=== PATIENT | male | born 1945 | race Caucasian/White ===

== ENCOUNTER 2021-02-03 09:54 | Inpatient (IN) | payer OTHER ==
[~2021-02-03] VITALS: Ht 177.8 cm; Wt 84.5 kg
[2021-02-03 10:01] VITALS: BP 183/124
[2021-02-03] MEDS ORDERED: LIPITOR40 MG PO (10:10)
[2021-02-03] MEDS ORDERED: LYRICA200 MG PO (10:10)
[2021-02-03] MEDS ORDERED: PERCOCET 5-3251 EACH (10:10)
[2021-02-03] MEDS ORDERED: OMEPRAZOLE 20 M20 M1 PO (10:10)
[2021-02-03] MEDS ORDERED: COZAAR 50 MG TA50 MG PO (10:11)
[2021-02-03] MEDS ORDERED: DRIZALMA SPRINK60 MG PO (10:11)
[2021-02-03] MEDS ORDERED: COREG25 M1 PO (10:11)
[2021-02-03] MEDS ORDERED: VITAMINC500 PO (10:11)
[2021-02-03] MEDS ORDERED: VITAMIN D3125 MCG PO (10:12)
[2021-02-03] MEDS ORDERED: FISH OIL/OMEGA-3 (10:13)
[2021-02-03] MEDS ORDERED: SENNA8.8 MG/5 M PO (10:13)
[2021-02-03] MEDS ORDERED: DULCOLAX STOOL100 M1 PO (10:13)
[2021-02-03 10:37] LABS: ABSOLUTE EOSINOPHILS 0.3 thou/uL (0.0-0.7); ABSOLUTE MONOCYTES 0.5 thou/uL (0.0-1.2); BASOPHILS 0.4 %; EOSINOPHILS 3.7 %; HEMOGLOBIN 10.9 gm/dL (14.0-18.0); LYMPHOCYTES 15.3 %; MCH 28.3 pg (26.0-34.0); MCV 85.6 fL (80.0-100.0); MPV 8.2 fl. (7.2-11.1); NUCLEATED RBCS 0 /100WBC; PLATELET COUNT* 226 thou/uL (150-400); POLYS 72.6 %; RBC 3.86 mil/uL (4.50-6.00); RDW-CV 15.6 % (10.5-14.5); WBC 6.8 thou/uL (4.0-11.0)
[2021-02-03 10:49] LABS: CALCIUM 8.3 mg/dL (8.5-10.1); CREATININE 0.9 mg/dL (0.6-1.3); POTASSIUM 3.4 mmol/L (3.5-5.1)
[2021-02-03 10:53] LABS: ALBUMIN 2.5 g/dL (3.4-5.0); TOTAL BILIRUBIN 0.5 mg/dL (<0.1-1.0); TOTAL PROTEIN 6.2 g/dL (6.4-8.2)
[2021-02-03 12:15] LABS: URINE BILIRUBIN NEGATIVE (Negative); URINE BLOOD NEGATIVE (Negative); URINE CLARITY CLEAR; URINE COLOR YELLOW; URINE GLUCOSE-RANDOM NEGATIVE (Negative); URINE KETONES NEGATIVE (Negative); URINE LEUKOCYTES-REFLEX NEGATIVE (Negative); URINE NITRITE-REFLEX NEGATIVE (Negative); URINE PROTEIN NEGATIVE (Negative); URINE SPECIFIC GRAVITY <= 1.005 (1.005-1.030); URINE UROBILINOGEN 0.2 E.U./dl (0.2-1.0)
[2021-02-03 12:16] LABS: NT-PRO BRAIN NAT PEPTIDE 2583 pg/mL (<300)
--- NOTE | 2021-02-03 15:41 | EKG ---
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
[2021-02-03 18:33] VITALS: BP 141/73
[2021-02-03 19:07] VITALS: BP 155/80
[2021-02-03 20:00] VITALS: BP 196/90
[2021-02-03 23:50] VITALS: BP 163/67
[2021-02-04 05:16] LABS: HEMOGLOBIN 10.4 gm/dL (14.0-18.0); MCH 28.2 pg (26.0-34.0); MCHC 33.6 g/dL (28.0-37.0); MCV 84.1 fL (80.0-100.0); MPV 8.9 fl. (7.2-11.1); RBC 3.68 mil/uL (4.50-6.00); RDW-CV 15.6 % (10.5-14.5); WBC 8.3 thou/uL (4.0-11.0)
[2021-02-04 05:23] VITALS: BP 159/74
[2021-02-04 05:26] LABS: CALCIUM 8.5 mg/dL (8.5-10.1)
[2021-02-04 05:27] LABS: POTASSIUM 2.8 mmol/L (3.5-5.1)
[2021-02-04 08:21] VITALS: BP 148/67
[2021-02-04 11:32] VITALS: BP 148/68
[2021-02-04 12:08] LABS: MAGNESIUM 1.5 mg/dL (1.8-2.4); PHOSPHORUS* 3.4 mg/dL (2.5-4.9)
--- NOTE | 2021-02-04 13:43 | 2DMMODE ---
[place] [address] 2 D/M-MODE ECHOCARDIOGRAM Name: KARANESTRELLAROBY Room: [facility] ADM IN [facility]#: [id number] Admission: 02/03/21 Attend Phys: Nelia Huertas MD Discharge: Date of : 45 Date of Service: 02/04/21 1343 Report #: [id number] THIS REPORT FOR: cc: Ronal Bradley Gregory DO Liston, Michael J. MD [facility] ~ APPROVED REPORT Study performed: 02/04/2021 10:55:21 EXAM: Comprehensive 2D, Doppler, and color-flow Echocardiogram Patient Location: In-Patient Room #: [facility] Status: routine BSA: 1.92 HR: 98 bpm BP: 148/67 mmHg Rhythm: NSR Other Information Study Quality: Good Indications Murmur 2D Dimensions IVSd: 10.10 (7-11mm) LVOT Diam: 19.48 (18-24mm) LVDd: 34.15 mm PWd: 10.91 (7-11mm) Ascending Ao: 35.89 (22-36mm) LVDs: 23.76 (25-40mm) Aortic Root: 34.83 mm Volumes Left Atrial Volume (Systole) LA ESV Index: 35.40 mL/m2 Aortic Valve AoV Peak Tayo.: 2.76 m/s AO Peak Gr.: 30.45 mmHg LVOT Max P.66 mmHg AO Mean Gr.: 16.94 mmHg LVOT Mean P.48 mmHg LVOT Max V: 1.29 m/s AO V2 VTI: 62.31 cm LVOT Mean V: 0.86 m/s CATHY (VTI): 1.62 cm2 LVOT V1 VTI: 33.96 [place] [address] 2 D/M-MODE ECHOCARDIOGRAM Name: ROBY OWENS Room: [address] IN ..#: [id number] Admission: 02/03/21 Attend Phys: Nelia Huertas MD Discharge: Date of : 45 Date of Service: 02/04/21 1343 Report #: [id number] Mitral Valve E/A Ratio: 1.06 MV Decel. Time: 294.22 ms MV E Max Tayo.: 0.91 m/s MV PHT: 85.32 ms MVA (PHT): 2.58 cm2 TDI E/Lateral E': 10.11 E/Medial E': 10.11 Medial E' Tayo.: 0.09 m/s Lateral E' Tayo.: 0.09 m/s Pulmonary Valve PV Peak Tayo.: 1.23 m/s PV Peak Gr.: 6.10 mmHg Tricuspid Valve RAP Estimate: 5.00 mmHg TR Peak Gr.: 30.12 mmHg RVSP: 35.00 mmHg PA Pressure: 35.00 mmHg Left Ventricle The left ventricle is normal size. There is normal LV segmental wall motion. Mild concentric left ventricular hypertrophy. Left ventricular systolic function is normal. LVEF is 60-65%. Transmitral Doppler flow pattern suggests impaired LV relaxation. Right Ventricle Right ventricle is mildly dilated. The right ventricular systolic function is normal. Atria Left atrium is borderline dilated. Right atrium is mildly dilated. Aortic Valve Mild aortic valve sclerosis. Trace aortic regurgitation. Moderate aortic stenosis. Mitral Valve The mitral valve is normal in structure. Trace mitral regurgitation. No evidence of mitral valve stenosis. Tricuspid Valve The tricuspid valve is normal in structure. Mild tricuspid regurgitation. Mild pulmonary hypertension. The RVSP is 35-40 [place] [address] 2 D/M-MODE ECHOCARDIOGRAM Name: ROBY OWENS Room: [address] IN [facility]#: [id number] Admission: 02/03/21 Attend Phys: Nelia Huertas MD Discharge: Date of : 45 Date of Service: 02/04/21 1343 Report #: [id number] Pulmonic Valve The pulmonary valve is normal in structure. There is no pulmonic valvular regurgitation. Great Vessels The aortic root is normal in size. IVC is normal in size and collapses >50% with inspiration. Pericardium There is no pericardial effusion. <Conclusion> The left ventricle is normal size. Mild concentric left ventricular hypertrophy. Left ventricular systolic function is normal. LVEF is 60-65%. Transmitral Doppler flow pattern suggests impaired LV relaxation. There is normal LV segmental wall motion. Right ventricle is mildly dilated. Right atrium is mildly dilated. Mild aortic valve sclerosis. Trace aortic regurgitation. Moderate aortic stenosis. Trace mitral regurgitation. Mild tricuspid regurgitation. Mild pulmonary hypertension. The RVSP is 35-40 mmHg. IVC is normal in size and collapses >50% with inspiration. <ELECTRONICALLY SIGNED> By: Quintin Khan MD, FACC 02/04/21 1343 1343 1343 Quintin Khan MD, FACC /INF
[2021-02-04 16:41] VITALS: BP 148/68
--- NOTE | 2021-02-04 17:24 | CON ---
[address] [address] CONSULTATION Name: ROBY OWENS Room: [place] [address] ADM IN M.R.#: [id number] Admission: 02/03/21 Attend Phys: Nelia Huertas MD Discharge: Date of : 45 Report #: [id number] THIS REPORT FOR: cc: Ronal Bradley Gregory DO Blick, David R. MD [facility] ~ DOC #: [id number] cc: DO Reji Paiz MD [facility] DATE OF CONSULTATION: 02/03/2021 CARDIOLOGY CONSULTATION HISTORY OF PRESENT ILLNESS: The patient is a 75-year-old white male who I was asked to see in the emergency room today after he is noted to have an elevated troponin. The patient denies a history of heart disease. He has been told in the past he has a heart murmur. However, he has never seen a heart doctor. He is not very active because of chronic back pain. He recently moved back from [place] to live in [place]. He notes about a week ago he ate pizza. Ever since then, he has not felt well. He has had black stools and diarrhea. He ran a fever. He notes some aching in his chest. He has vomited, no blood in his vomit. He has had some epigastric discomfort. He has had no appetite. He notes his heart was racing. He has felt dizzy, but no syncope. He finally came to the emergency room and was admitted for further evaluation and treatment. PAST MEDICAL HISTORY: Impressive. PAST SURGICAL HISTORY: Includes hernia repair, knee surgery, hemorrhoidectomy, appendectomy, elbow surgery, sinus surgery, spinal implant, cervical spine fusion, skin cancer removal, hammertoe surgery, rotator cuff surgery, cataract extraction. He denied a history of diabetes. He does have hypertension, hyperlipidemia. CURRENT MEDICATIONS: Oxycodone, Lipitor, omeprazole, Cymbalta, losartan, carvedilol. ALLERGIES: HE HAS ALLERGY TO CODEINE. FAMILY HISTORY: Negative for heart disease. SOCIAL HISTORY: He is . His has multiple sclerosis. She has been at a [facility] [place] [address] CONSULTATION Name: ROBY OWENS Room: [address] IN [facility]#: [id number] Admission: 02/03/21 Attend Phys: Nelia Huertas MD Discharge: Date of : 45 Report #: [id number] REVIEW OF SYSTEMS: No history of stroke, asthma, liver disease, kidney disease, psychiatric illness. PHYSICAL EXAMINATION: GENERAL: Revealed elderly male, lying in bed, appeared in no acute distress. VITAL SIGNS: He had a blood pressure of 180/90, pulse is 60. He is afebrile. HEENT: He was anicteric. Conjunctivae are pink. Mucous membranes moist. NECK: Veins not distended. No carotid bruits. CHEST: Clear to auscultation. HEART: Regular rate and rhythm. Grade IV systolic ejection murmur at left sternal border. ABDOMEN: Mildly tender, soft. EXTREMITIES: Had no edema. Dorsalis pedis pulses 1+ bilaterally. SKIN: Cool and dry. NEUROLOGIC: Nonfocal. LABORATORY DATA: His ECG in the emergency room showed sinus bradycardia, no significant ST or T-wave change. His workup in the emergency room, he had a CT scan of the chest using a PE protocol that showed pulmonary infiltrates suggestive of pneumonitis. He had a CT scan of the abdomen in the emergency room that showed pulmonary infiltrate, small effusion. His lab work, creatinine 0.9, troponin 0.08. BNP 2583, hemoglobin 10.9. His COVID antigen stat test was negative. Urinalysis was negative for protein. IMPRESSION AND RECOMMENDATION: 1. Minimal nonsignificant elevation of troponin. Recommend no further cardiac evaluation. 2. Aortic stenosis. Recommend echocardiogram. 3. Dark stools. Recommend rule out gastrointestinal bleeding. 4. Epigastric discomfort and nausea. No evidence of acute abdomen. 5. Degenerative joint disease. The patient has multiple orthopedic surgeries. 6. Pneumonia noted on CT scan of the chest. 7. Hemoglobin. Possible gastrointestinal bleeding. Reji Alvarado MD [facility] B/OMID <ELECTRONICALLY SIGNED> By: Reji Alvarado MD, [facility] 02/04/21 1724 1557 Dkofi Alvarado MD, [facility] /nt
[2021-02-04 20:00] VITALS: BP 125/65
[2021-02-05] VITALS: BP 141/64
[2021-02-05 04:00] VITALS: BP 165/80
[2021-02-05 04:14] LABS: HEMATOCRIT 31.3 % (42.0-52.0); HEMOGLOBIN 10.5 gm/dL (14.0-18.0); MCH 28.1 pg (26.0-34.0); MCHC 33.4 g/dL (28.0-37.0); MCV 84.1 fL (80.0-100.0); MPV 8.7 fl. (7.2-11.1); RBC 3.72 mil/uL (4.50-6.00); RDW-CV 15.9 % (10.5-14.5)
[2021-02-05 04:24] LABS: CALCIUM 8.4 mg/dL (8.5-10.1); POTASSIUM 4.1 mmol/L (3.5-5.1)
[2021-02-05 08:40] VITALS: BP 188/86
[2021-02-05 12:00] VITALS: BP 162/73
[2021-02-05 16:00] VITALS: BP 138/64
[2021-02-05 20:00] VITALS: BP 172/76
[2021-02-06 00:08] VITALS: BP 160/68
[2021-02-06 05:21] VITALS: BP 182/80
[2021-02-06 12:31] VITALS: BP 174/83
[2021-02-06 20:00] VITALS: BP 206/92
[2021-02-07] VITALS: BP 125/55; BP 159/70
[2021-02-07 04:19] LABS: HEMATOCRIT 33.8 % (42.0-52.0); HEMOGLOBIN 11.3 gm/dL (14.0-18.0); MCH 28.2 pg (26.0-34.0); MCHC 33.3 g/dL (28.0-37.0); MCV 84.7 fL (80.0-100.0); MPV 8.6 fl. (7.2-11.1); RBC 3.99 mil/uL (4.50-6.00); RDW-CV 15.9 % (10.5-14.5)
[2021-02-07 04:36] LABS: CALCIUM 8.7 mg/dL (8.5-10.1); CREATININE 0.8 mg/dL (0.6-1.3); POTASSIUM 3.8 mmol/L (3.5-5.1)
[2021-02-07 08:00] VITALS: BP 190/85
[2021-02-07 18:10] VITALS: BP 165/90
[2021-02-07 20:00] VITALS: BP 163/94
[2021-02-08 00:28] VITALS: BP 182/82
[2021-02-08 03:47] LABS: CALCIUM 9.1 mg/dL (8.5-10.1); CREATININE 0.9 mg/dL (0.6-1.3); HEMATOCRIT 35.8 % (42.0-52.0); HEMOGLOBIN 11.7 gm/dL (14.0-18.0); MCH 27.8 pg (26.0-34.0); MCHC 32.7 g/dL (28.0-37.0); MCV 85.1 fL (80.0-100.0); MPV 9.3 fl. (7.2-11.1); POTASSIUM 4.2 mmol/L (3.5-5.1); RBC 4.21 mil/uL (4.50-6.00); RDW-CV 16.1 % (10.5-14.5); WBC 7.8 thou/uL (4.0-11.0)
[2021-02-08 07:30] VITALS: BP 178/84
[2021-02-08 16:00] VITALS: BP 147/78
[2021-02-08 20:00] VITALS: BP 161/89
[2021-02-08] MEDS ORDERED: TAMSULOSIN HCL0.4 MG PO (21:34)
[2021-02-09 00:44] VITALS: BP 162/72
[2021-02-09 10:00] VITALS: BP 184/102
[2021-02-09 14:21] VITALS: BP 166/109
[2021-02-09 20:00] VITALS: BP 148/76
[2021-02-09 23:42] VITALS: BP 150/66
[2021-02-10 04:37] LABS: ALBUMIN 2.6 g/dL (3.4-5.0); CALCIUM 8.8 mg/dL (8.5-10.1); MAGNESIUM 1.8 mg/dL (1.8-2.4); POTASSIUM 4.4 mmol/L (3.5-5.1); TOTAL BILIRUBIN 0.4 mg/dL (<0.1-1.0); TOTAL PROTEIN 6.3 g/dL (6.4-8.2)
[2021-02-10 04:38] LABS: HEMATOCRIT 35.2 % (42.0-52.0); HEMOGLOBIN 11.5 gm/dL (14.0-18.0); MCHC 32.6 g/dL (28.0-37.0); MCV 85.9 fL (80.0-100.0); MPV 8.7 fl. (7.2-11.1); RBC 4.1 mil/uL (4.50-6.00); RDW-CV 16.3 % (10.5-14.5); WBC 7.5 thou/uL (4.0-11.0)
[2021-02-10 08:00] VITALS: BP 150/93
[2021-02-10 16:00] VITALS: BP 134/70
[2021-02-11 00:38] VITALS: BP 122/52
[2021-02-11 04:43] VITALS: BP 179/75
[2021-02-11 04:48] LABS: HEMATOCRIT 32.4 % (42.0-52.0); MCV 85.1 fL (80.0-100.0); MPV 8.8 fl. (7.2-11.1); RBC 3.81 mil/uL (4.50-6.00); RDW-CV 15.5 % (10.5-14.5); WBC 7.8 thou/uL (4.0-11.0)
[2021-02-11 04:55] LABS: ALBUMIN 2.5 g/dL (3.4-5.0); CALCIUM 8.6 mg/dL (8.5-10.1); CREATININE 1.1 mg/dL (0.6-1.3); MAGNESIUM 1.8 mg/dL (1.8-2.4); TOTAL BILIRUBIN 0.3 mg/dL (<0.1-1.0); TOTAL PROTEIN 6.1 g/dL (6.4-8.2)
[2021-02-11 07:45] VITALS: BP 157/103
[2021-02-11 13:41] LABS: APTT 26.7 Seconds (25.0-31.3); INR 1.1; PROTIME 11.8 Seconds (9.20-11.50)
[2021-02-11 16:57] VITALS: BP 115/55
[2021-02-11 17:39] LABS: BE -0.5 mmol/L (-2 to +3); PCO2 41.9 mmHg (35.0-45.0); PO2 93.4 mmHg (75.0-100.0); pH 7.386 (7.340-7.450)
[2021-02-11 20:00] VITALS: BP 133/74
[2021-02-12 00:10] VITALS: BP 121/54
[2021-02-12 04:48] LABS: ABSOLUTE LYMPHOCYTES 0.9 thou/uL (0.8-5.3); ABSOLUTE MONOCYTES 0.1 thou/uL (0.0-1.2); ABSOLUTE NEUTROPHILS 5.7 thou/uL (1.6-8.1); BASOPHILS 0.4 %; HEMATOCRIT 34.5 % (42.0-52.0); HEMOGLOBIN 11.5 gm/dL (14.0-18.0); LYMPHOCYTES 13.4 %; MCH 28.7 pg (26.0-34.0); MCHC 33.3 g/dL (28.0-37.0); MCV 86.2 fL (80.0-100.0); MPV 8.6 fl. (7.2-11.1); NUCLEATED RBCS 0 /100WBC; PLATELET COUNT* 256 thou/uL (150-400); POLYS 84.2 %; RDW-CV 15.6 % (10.5-14.5); WBC 6.7 thou/uL (4.0-11.0)
[2021-02-12 04:51] VITALS: BP 119/42
[2021-02-12 04:52] LABS: ALBUMIN 2.7 g/dL (3.4-5.0); CALCIUM 9.3 mg/dL (8.5-10.1); CREATININE 1.1 mg/dL (0.6-1.3); POTASSIUM 5.2 mmol/L (3.5-5.1); TOTAL BILIRUBIN 0.3 mg/dL (<0.1-1.0); TOTAL PROTEIN 6.7 g/dL (6.4-8.2)
[2021-02-12 07:30] VITALS: BP 152/78
[2021-02-12 10:08] LABS: ANTI-DNA SCREEN <1 IU/mL (0-9); ANTI-RNP <0.2 AI (0.0-0.9); ANTI-SSA <0.2 AI (0.0-0.9); ANTIJO-I AB <0.2 AI (0.0-0.9)
[2021-02-12 14:03] VITALS: BP 135/67
[2021-02-12 17:22] VITALS: BP 131/65
[2021-02-12 23:06] LABS: MYCOPLASMA PNEUMONIA IgM <770 U/mL (0-769)
[2021-02-13 00:55] VITALS: BP 143/64
[2021-02-13 02:06] LABS: MYCOPLASMA PNEUMONIA IgG 1125 U/mL (0-99)
[2021-02-13 04:39] VITALS: BP 145/57
[2021-02-13 07:30] VITALS: BP 166/76
[2021-02-13 16:51] VITALS: BP 117/52
[2021-02-13 20:00] VITALS: BP 141/61
[2021-02-14 00:35] VITALS: BP 140/67
[2021-02-14 04:32] LABS: HEMATOCRIT 33.9 % (42.0-52.0); HEMOGLOBIN 11.4 gm/dL (14.0-18.0); MCH 29.3 pg (26.0-34.0); MCHC 33.6 g/dL (28.0-37.0); MCV 87.1 fL (80.0-100.0); MPV 8.7 fl. (7.2-11.1); RBC 3.89 mil/uL (4.50-6.00); WBC 8.7 thou/uL (4.0-11.0)
[2021-02-14 04:59] LABS: ALBUMIN 2.6 g/dL (3.4-5.0); CALCIUM 8.9 mg/dL (8.5-10.1); MAGNESIUM 1.8 mg/dL (1.8-2.4); POTASSIUM 4.2 mmol/L (3.5-5.1); TOTAL BILIRUBIN 0.2 mg/dL (<0.1-1.0); TOTAL PROTEIN 6.1 g/dL (6.4-8.2)
[2021-02-14 07:05] VITALS: BP 176/89
[2021-02-14 09:44] VITALS: BP 176/89
[2021-02-14 10:03] VITALS: BP 176/89
[2021-02-14 10:53] VITALS: BP 176/89
--- NOTE | 2021-02-14 15:07 | PATH ---
[address] [address] PATHOLOGY RPT PROCEDURE Name: ROBY OWENS Room: [address]#: [id number] Admission: 02/03/21 Date of : 45 Discharge: 02/14/21 Report #: [id number] Path Case #: [id number] Note [facility] Accession Number: [id number] TESTS RESULT FLAG UNITS REF RANGE LAB Clinician Provided Cytology Information No. of containers..01 Other (Miscellaneous) Source: BRONCH WASH [place] DIAGNOSIS: 02 BRONCH WASH [place] NEGATIVE FOR MALIGNANT CELLS. FEW BRONCHIAL EPITHELIAL CELLS, PULMONARY MACROPHAGES AND INFLAMMATORY CELLS ARE PRESENT. GMS (SILVER STAIN) NEGATIVE FOR PNEUMOCYSTIS AND FUNGAL ELEMENTS BUT LIMITED BY ESSENTIALLY ABSENT REMAINING CELLULARITY. Signed out by: 02 Fransico [place] MD, Pathologist NPI- [id number] Performed by: 01 Lolly Gray, Ironworker Foreman ([facility]) Gross description: 01 5ML, CLDY DEBRA MERINO, 1 TP 1SP /LCS 02/13/2021 1802 Local FLAG LEGEND: L-Low Normal,H-High Normal,LL-Alert Low,HH-Alert High <-Panic Low,>-Panic High,A-Abnormal,AA-Critical Abnormal Performed at: [address] [place] [address] Miguelangel Soni MD, [address] [place] [address] [place] [address] Fransico [place] MD, Specimen Comment: A courtesy copy of this report has been sent to [phone] Specimen Comment: [phone], Specimen Comment: Report sent to ,DR COOPER / DR DAS Performed at: [address], [place], [place] [id number] MD Miguelangel Soni MD Phone: [phone]
--- NOTE | 2021-02-17 11:06 | PATH ---
[address] [address] PATHOLOGY RPT PROCEDURE Name: ROBY OWENS Room: [address]#: [id number] Admission: 02/03/21 Date of : 45 Discharge: 02/14/21 Report #: [id number] Path Case #: [id number] Note [facility] Accession Number: [id number] TESTS RESULT FLAG UNITS REF RANGE LAB Clinician Provided Cytology Information No. of containers..01 Other (Miscellaneous) Source: BRONCH WASH RT LLL DIAGNOSIS: BRONCH WASH RT LL NEGATIVE FOR MALIGNANT CELLS. FEW BRONCHIAL EPITHELIAL CELLS, PULMONARY MACROPHAGES, SQUAMOUS CELLS AND INFLAMMATORY CELLS. SILVER STAIN (GMS) NEGATIVE FOR PNEUMOCYSTIS AND FUNGAL ORGANISMS BUT LIMITED BY ESSENTIALLY ABSENT REMAINING CELLULARITY. Signed out by: 02 Fransico [place] MD, Pathologist NPI- [id number] Performed by: 01 Lolly Gray, Warp Coiler ([facility]) Gross description: 01 12ML, CLDY DEBRA MERINO, 1 TP 1SP /LCS 02/14/2021 1723 Local FLAG LEGEND: L-Low Normal,H-High Normal,LL-Alert Low,HH-Alert High <-Panic Low,>-Panic High,A-Abnormal,AA-Critical Abnormal Performed at: [address] [place] [address] Miguelangel Soni MD, [address] [place] [address] [place] [address] Fransico [place] MD, Specimen Comment: A courtesy copy of this report has been sent to [phone] Specimen Comment: [phone], Specimen Comment: Report sent to ,DR COOPER / DR DAS Performed at: [address], [place], [place] [id number] MD Miguelangel Soni MD Phone: [phone]
--- NOTE | 2021-02-17 15:08 | CON ---
[address] [address] CONSULTATION Name: KARANESTRELLAROBY Agustin Room: [address] IN .R.#: [id number] Admission: 02/03/21 Attend Phys: Nelia Huertas MD Discharge: 02/14/21 Date of : 45 Report #: [id number] THIS REPORT FOR: cc: Ronal Bradley Gregory DO Pervez, Adeel MD ~ DOC #: [id number] Aristides Ornelas MD DATE OF CONSULTATION: 02/11/2021 CONSULT REQUESTED BY: Dr. Esquivel. INDICATION FOR CONSULTATION: Pulmonary infiltrates. HISTORY OF PRESENT ILLNESS: This is a 75-year-old gentleman. His past medical history is as mentioned below. This does not include a history of a cardiac or respiratory disease. The patient has had significant pain issues in the past and has previously taken significant amounts of narcotics, states that he is now off. The patient was now admitted about a week ago on 02/03/2021 presentation was with multiple nonspecific complaints. He subjectively felt febrile, also had had weakness, nausea and vomiting. He stated that he also was short of breath. The patient at that time did have a CT chest without contrast performed, which does show atypical looking bilateral infiltrates. He also had a CT of the abdomen and pelvis performed which was noncontributory. The patient was tested for COVID-19 and his COVID-19 antigen as well as a PCR came back negative. He did have an echocardiogram which showed moderate aortic stenosis and was seen by cardiology as well. The patient has remained on room air; however, there has only been limited improvement in his complaints. He says that his shortness of breath is better; however, he still feels weak and lethargic. The patient also has ongoing diarrhea. As he has been on broad spectrum antibiotics, he is currently being tested for C. diff. The patient's blood pressure remains on the higher side. The patient's chest x-rays show persistent infiltrates. He has received several doses of azithromycin and still remains on ceftriaxone. The patient currently does not have sputum production. He also does not have swelling of lower extremities or calf pain. However, he does have chronic venous insufficiency and does have some varicose veins. REVIEW OF SYSTEMS: The patient answers to the negative for 12 questions for review of systems except as described above. PAST MEDICAL HISTORY: Moderate aortic stenosis. He had a recent echo that shows a left ventricular ejection fraction of 60-65% with pulmonary artery systolic around 30-35. Hip and back pain in the past, has used significant amounts of narcotics. The patient states that he is now off narcotics. He has had a spinal implant, hernia surgery, knee surgery, hemorrhoid surgery, [place] [address] CONSULTATION Name: ROMANROBY Agustin Room: [address] IN .R.#: [id number] Admission: 02/03/21 Attend Phys: Nelia Huertas MD Discharge: 02/14/21 Date of : 45 Report #: [id number] appendectomy, skull fracture and spinal fusion, nose cancer requiring surgery, rotator cuff surgery, uncontrolled hypertension. SOCIAL HISTORY: There is no known history of smoking, ethanol abuse, or drug abuse. CURRENT MEDICATIONS: List in [employer], reviewed. HOME MEDICATION: List in [employer], reviewed. FAMILY HISTORY: There is no pertinent family history. ALLERGIES: THE PATIENT IS REPORTED TO HAVE ALLERGY OR INTOLERANCE TO CODEINE. PHYSICAL EXAMINATION: GENERAL: He is alert, awake and oriented, does not appear to be in any distress at this time. VITAL SIGNS: He has a pulse of 63. Blood pressure is elevated to 157/103. He is not on supplemental oxygen. He is saturating 96%. His respiratory rate is around 16 to 17. He is afebrile with a temperature of 36.2. His body mass index is 27. HEENT: Normocephalic and atraumatic. Pupils are equal and reactive. There is no throat erythema. He does not have thrush in his throat. NECK: Does not show raised JVP, asymmetry, mass or lymph nodes. CHEST: Symmetrical expansion on inspection and palpation on auscultation. Breath sounds are bilaterally equal, but mildly decreased. I do not hear any added sounds. HEART: Regular. There is a soft systolic murmur. ABDOMEN: Soft and nontender. LOWER EXTREMITIES: Do not show edema or calf tenderness. There are significant varicose veins noted, though there is evidence of chronic venous insufficiency. SKIN: Dry and intact. NEUROLOGIC: Moves all extremities bilaterally equally and spontaneously with no focal deficit identified. LABORATORY DATA: The patient had a CT chest on 02/03. I reviewed the same. The patient has subsequently had two chest x-rays. I reviewed the same as well. CT of the abdomen and pelvis report is reviewed. I do not have a previous x-ray or CT available for comparison. The patient's lab work, which was a normal WBC count and normal creatinine of 1.0 in [employer] reviewed. ASSESSMENT AND PLAN: 1. Pulmonary infiltrates. There are atypical looking infiltrates noted on his CT chest. The patient already has been treated with several doses of [facility] [address] [place] [address] CONSULTATION Name: ROBY OWENS Room: [address]#: [id number] Admission: 02/03/21 Attend Phys: Nelia Huertas MD Discharge: 02/14/21 Date of : 45 Report #: [id number] azithromycin and remains on ceftriaxone. Considering limited clinical improvement, I will go ahead and investigate further. I will go ahead and check serology for mycoplasma. We will also go ahead and obtain a connective tissue markers. I also ordered a D-dimer. Histoplasma appears to be unlikely, but for the sake of completion, I ordered histoplasma urine antigen as well. I will review these labs and subsequently I intend to order a CT chest. If a CT chest shows improvement compared with the previous CT, we will only plan to watch these infiltrates; however, if improvement is not noted then I will consider proceeding to a bronchoscopy. I discussed this with the patient and he is agreeable, should be recommended. Note that he has had a previous history of narcotic use and therefore he may be more difficult to sedate compared with an average patient. 2. Varicose veins/chronic venous insufficiency/evaluation for thromboembolic phenomena. I ordered a D-dimer as above. If it comes back elevated then I would investigate further. 3. Aortic stenosis. I understand from the Cardiology note that they are planning to follow him as an outpatient. He does not appear to be fluid overloaded at this time. 4. Diarrhea/possibility of a gastrointestinal bleed. His hemoglobin is not dropping. There is a Clostridium difficile toxin pending. We will review when available. The patient is on prophylactic dose Lovenox and he does appear to be tolerating the same. Thanks for this consultation. MD DOUGLAS Hallman/JUN/MAVIS <ELECTRONICALLY SIGNED> By: Aristides Ornelas MD 02/17/21 1508 1224 1524Asandi Ornelas MD /nt
--- NOTE | 2021-02-17 15:08 | PROC ---
[address] [address] PROCEDURE REPORT Name: KARANESTRELLAROBY Agustin Room: [address] IN M.R.#: [id number] Admission: 02/03/21 Attend Phys: Nelia Huertas MD Discharge: 02/14/21 Date of : 45 Report #: [id number] THIS REPORT FOR: cc: Ronal Bradley Gregory DO Pervez, Adeel MD ~ DOC #: [id number] Aristides Ornelas MD DATE OF PROCEDURE: 02/12/2021 PROCEDURES PERFORMED: Bronchoscopy and bronchial washings. INDICATION FOR PROCEDURE: Pulmonary infiltrates. POSTPROCEDURE DIAGNOSIS: Clear secretions throughout, erythema right bronchial tree. Specimen sent for cultures and cytology. CONSENT: Informed consent was obtained from the patient. SEDATION: The patient was sedated with 3 mg of Versed and 200 mcg of fentanyl. DESCRIPTION OF PROCEDURE: Informed consent was obtained, the patient was sedated as above. After the respiratory therapist prepared the upper airway per the protocol using local anesthetic solution, I then proceeded to inserting the bronchoscope through the left nostril and advanced it without difficulty to visualize the vocal cords. The vocal cords were sprayed with a total of 12 mL of 2% Xylocaine, after which coughing stopped. Initially, the patient was keeping the vocal cords adducted and therefore had to wait for a while after which I advanced the bronchoscope into the trachea and then proceeded to examining the entire bronchial tree. Another 6 mL of 2% Xylocaine was instilled in the trachea and 3 mL in the right as well as left mainstem. We found clear secretions throughout. There was mild erythema of the right bronchial tree. In particular in the right lower lobe, there were no other additional findings. There was no endobronchial lesions identified. I proceeded to performing bronchial washings first from the lingula. We instilled 20 mL of saline and got back a return around 20 mL of slightly turbid fluid. Bronchial washing was subsequently performed from the right lower lobe. We again instilled 20 mL of saline and in fact got back a return of around 25 mL of again slightly turbid fluid. The specimens were collected and sent to the laboratory. The patient remained stable throughout the procedure and did not have any complications as a result of this procedure. [place] [address] PROCEDURE REPORT Name: ROBY OWENS Room: [address]#: [id number] Admission: 02/03/21 Attend Phys: Nelia Huertas MD Discharge: 02/14/21 Date of : 45 Report #: [id number] DOUGLAS/MAURA/LEXIE <ELECTRONICALLY SIGNED> By: Aristides Ornelas MD 02/17/21 1508 1256 1335AMD melo Perea
== END 2021-02-14 12:42 | disposition home health service (06) | DRG 177 ==
LOC: M.ERS 09:54 → M.TBA-ER 13:46 → M.2W 13:46 → M.ORTHSURG 02-14 07:19
PROVIDERS: Internal Medicine; Internal Medicine Critical Care Medicine; Nurse Practitioner Family; ADMIT Family Medicine; ATTEND Family Medicine
PROC: 05HF33Z Insertion of Infusion Device into Left Cephalic Vein, Percutaneous Approach (ICD-10-PCS; 2021-02-04)
PROC: B54NZZA Ultrasonography of Left Upper Extremity Veins, Guidance (ICD-10-PCS; 2021-02-04)
PROC: 0B9F8ZZ Drainage of Right Lower Lung Lobe, Via Natural or Artificial Opening Endoscopic (ICD-10-PCS; principal; 2021-02-12)
PROC: 0B998ZZ Drainage of Lingula Bronchus, Via Natural or Artificial Opening Endoscopic (ICD-10-PCS; principal; 2021-02-12)
DX: J15.6 Pneumonia due to other Gram-negative bacteria (principal); I50.31 Acute diastolic (congestive) heart failure; J91.8 Pleural effusion in other conditions classified elsewhere; K92.1 Melena; A04.8 Other specified bacterial intestinal infections; I11.0 Hypertensive heart disease with heart failure; E78.5 Hyperlipidemia, unspecified; I35.0 Nonrheumatic aortic (valve) stenosis; M19.90 Unspecified osteoarthritis, unspecified site; I83.90 Asymptomatic varicose veins of unspecified lower extremity; I87.2 Venous insufficiency (chronic) (peripheral); F41.9 Anxiety disorder, unspecified; F32.9 Major depressive disorder, single episode, unspecified; K21.9 Gastro-esophageal reflux disease without esophagitis; I16.0 Hypertensive urgency; E87.6 Hypokalemia; G62.9 Polyneuropathy, unspecified; B96.0 Mycoplasma pneumoniae [M. pneumoniae] as the cause of diseases classified elsewhere; Z96.651 Presence of right artificial knee joint; Z20.822 Contact with and (suspected) exposure to COVID-19; Z90.49 Acquired absence of other specified parts of digestive tract; Z98.1 Arthrodesis status; Z85.828 Personal history of other malignant neoplasm of skin; Z88.5 Allergy status to narcotic agent; Z79.899 Other long term (current) drug therapy

== ENCOUNTER 2021-04-23 11:03 | Emergency (ER) | payer OTHER ==
[~2021-04-23] VITALS: Ht 182.9 cm; Wt 88.5 kg
[~2021-04-23 11:03] MED LIST: COREG25 M1 PO; COZAAR 50 MG TA50 MG PO; DRIZALMA SPRINK60 MG PO; DULCOLAX STOOL100 M1 PO; FISH OIL/OMEGA-3; LIPITOR40 MG PO; LYRICA200 MG PO; OMEPRAZOLE 20 M20 M1 PO; PERCOCET 5-3251 EACH; SENNA8.8 MG/5 M PO; TAMSULOSIN HCL0.4 MG PO; VITAMIN D3125 MCG PO; VITAMINC500 PO
[2021-04-23 11:53] LABS: ABSOLUTE BASOPHILS 0.1 thou/uL (0.0-0.2); ABSOLUTE EOSINOPHILS 0.3 thou/uL (0.0-0.7); ABSOLUTE LYMPHOCYTES 1.2 thou/uL (0.8-5.3); ABSOLUTE MONOCYTES 0.6 thou/uL (0.0-1.2); ABSOLUTE NEUTROPHILS 3.9 thou/uL (1.6-8.1); BASOPHILS 1.4 %; EOSINOPHILS 5.7 %; HEMATOCRIT 30.6 % (42.0-52.0); HEMOGLOBIN 10.4 gm/dL (14.0-18.0); MCH 29.6 pg (26.0-34.0); MCHC 33.9 g/dL (28.0-37.0); MCV 87.3 fL (80.0-100.0); MONOCYTES 9.7 %; MPV 9.7 fl. (7.2-11.1); NUCLEATED RBCS 0 /100WBC; PLATELET COUNT* 117 thou/uL (150-400); POLYS 63.2 %; RBC 3.51 mil/uL (4.50-6.00); RDW-CV 15.6 % (10.5-14.5); WBC 6.2 thou/uL (4.0-11.0)
[2021-04-23 12:02] LABS: CALCIUM 8.7 mg/dL (8.5-10.1); CREATININE 1.2 mg/dL (0.6-1.3); POTASSIUM 4.9 mmol/L (3.5-5.1)
[2021-04-23 12:13] LABS: TOTAL BILIRUBIN 0.6 mg/dL (<0.1-1.0); TOTAL PROTEIN 6.4 g/dL (6.4-8.2)
[2021-04-23] MEDS ORDERED: VENTOLIN HFA 1818 GM INH (12:23)
[2021-04-23] MEDS ORDERED: ZPAK PO (12:23)
[2021-04-23] MEDS ORDERED: PREDNISONE 20 M20 M1 PO (12:23)
[2021-04-23 13:07] VITALS: BP 155/72
--- NOTE | 2021-04-23 16:19 | EKG ---
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1945 Requested By: John Radford Order Number: [id number] MD: Reji Alvarado Measurements Intervals [place] Rate: 75 P: 0 AR: 69 QRS: 16 QRSD: 91 T: 61 QT: 415 QTc: 464 Interpretive Statements Sinus rhythm Supraventricular bigeminy Abnormal R-wave progression, early transition Compared to ECG 02/03/2021 10:22:55 Atrial premature complex(es) now present Sinus bradycardia no longer present Electronically Signed On 04-23-2021 16:19:00 CDT by Reji Alvarado [email or web address] <ELECTRONICALLY SIGNED> By: Reji Alvarado MD, [facility] 04/23/21 1619 1125 1125 Reji Alvarado MD, [facility] /EPI
== END 2021-04-23 13:08 | disposition home or self-care (01) ==
LOC: M.ERS 11:03
PROVIDERS: Family Medicine
DX: J40 Bronchitis, not specified as acute or chronic (principal); I10 Essential (primary) hypertension; Z88.5 Allergy status to narcotic agent; Z79.899 Other long term (current) drug therapy; Z98.890 Other specified postprocedural states

== ENCOUNTER 2021-07-08 19:01 | Inpatient (IN) | payer OTHER ==
[~2021-07-08] VITALS: Ht 193 cm; Wt 100.0 kg
[~2021-07-08 19:01] MED LIST changes: +PREDNISONE 20 M20 M1 PO; +VENTOLIN HFA 1818 GM INH; +ZPAK PO
[2021-07-08 19:10] VITALS: BP 134/70
[2021-07-08 19:33] LABS: ABSOLUTE BASOPHILS 0.1 thou/uL (0.0-0.2); ABSOLUTE EOSINOPHILS 0.5 thou/uL (0.0-0.7); ABSOLUTE LYMPHOCYTES 1.5 thou/uL (0.8-5.3); ABSOLUTE MONOCYTES 0.7 thou/uL (0.0-1.2); ABSOLUTE NEUTROPHILS 4.5 thou/uL (1.6-8.1); BASOPHILS 1.4 %; EOSINOPHILS 6.5 %; HEMATOCRIT 29.5 % (42.0-52.0); HEMOGLOBIN 9.8 gm/dL (14.0-18.0); LYMPHOCYTES 20.9 %; MCH 28.1 pg (26.0-34.0); MCHC 33.4 g/dL (28.0-37.0); MCV 84.1 fL (80.0-100.0); MPV 8.9 fl. (7.2-11.1); NUCLEATED RBCS 0 /100WBC; PLATELET COUNT* 194 thou/uL (150-400); POLYS 61.2 %; WBC 7.4 thou/uL (4.0-11.0)
[2021-07-08 19:40] LABS: CALCIUM 8.8 mg/dL (8.5-10.1); CREATININE 1.1 mg/dL (0.6-1.3); POTASSIUM 4.4 mmol/L (3.5-5.1)
[2021-07-08 19:52] LABS: ALBUMIN 2.8 g/dL (3.4-5.0); TOTAL BILIRUBIN 0.8 mg/dL (<0.1-1.0); TOTAL PROTEIN 6.7 g/dL (6.4-8.2)
[2021-07-08 20:48] LABS: PCO2 41.6 mmHg (35.0-45.0); PO2 93.7 mmHg (75.0-100.0); pH 7.451 (7.340-7.450)
[2021-07-08 21:23] LABS: APTT 29.1 Seconds (25.0-31.3); INR 1.2
[2021-07-09] VITALS (7 sets, daily range): BP systolic 142–186; BP diastolic 69–97
[2021-07-09 02:44] LABS: URINE BILIRUBIN NEGATIVE (Negative); URINE BLOOD NEGATIVE (Negative); URINE CLARITY CLEAR; URINE COLOR YELLOW; URINE GLUCOSE-RANDOM NEGATIVE (Negative); URINE KETONES NEGATIVE (Negative); URINE LEUKOCYTES-REFLEX NEGATIVE (Negative); URINE NITRITE-REFLEX NEGATIVE (Negative); URINE PROTEIN NEGATIVE (Negative); URINE SPECIFIC GRAVITY 1.025 (1.005-1.030); URINE UROBILINOGEN 0.2 E.U./dl (0.2-1.0)
--- NOTE | 2021-07-09 14:44 | EKG ---
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[place] : 1945 Requested By: Brian Jimenez Order Number: [id number] MD: Salvador Branham Measurements Intervals [place] Rate: 55 P: 0 MA: 257 QRS: 21 QRSD: 88 T: 68 QT: 428 QTc: 410 Interpretive Statements Sinus rhythm Prolonged MA interval Abnormal R-wave progression, early transition Minimal ST depression, anterolateral leads Compared to ECG 04/23/2021 11:25:02 First degree AV block now present ST (T wave) deviation now present Atrial premature complex(es) no longer present Electronically Signed On 07-09-2021 14:44:19 CDT by Salvador Branham [email or web address] <ELECTRONICALLY SIGNED> By: Salvador Branham MD, [facility] 07/09/21 1444 58 58 Salvador Branham MD, [facility] /EPI
[2021-07-10] VITALS (8 sets, daily range): BP systolic 98–183; BP diastolic 56–100
[2021-07-10 04:34] LABS: HEMATOCRIT 30.3 % (42.0-52.0); HEMOGLOBIN 10.3 gm/dL (14.0-18.0); MCH 28.3 pg (26.0-34.0); MCV 83.1 fL (80.0-100.0); MPV 9.6 fl. (7.2-11.1); RBC 3.65 mil/uL (4.50-6.00); RDW-CV 13.6 % (10.5-14.5); WBC 6.2 thou/uL (4.0-11.0)
[2021-07-10 05:08] LABS: ALBUMIN 2.8 g/dL (3.4-5.0); CALCIUM 8.6 mg/dL (8.5-10.1); CREATININE 1.3 mg/dL (0.6-1.3); MAGNESIUM 1.7 mg/dL (1.8-2.4); POTASSIUM 4.1 mmol/L (3.5-5.1); TOTAL BILIRUBIN 0.6 mg/dL (<0.1-1.0); TOTAL PROTEIN 6.9 g/dL (6.4-8.2)
[2021-07-11] VITALS (8 sets, daily range): BP systolic 101–191; BP diastolic 60–85
[2021-07-11 03:06] LABS: GLYCOHEMOGLOBIN (HGB A1C) 6.1 % (4.8-5.6)
[2021-07-11 03:46] LABS: HEMATOCRIT 28.5 % (42.0-52.0); HEMOGLOBIN 9.5 gm/dL (14.0-18.0); MCH 27.7 pg (26.0-34.0); MCHC 33.2 g/dL (28.0-37.0); MCV 83.5 fL (80.0-100.0); MPV 9.4 fl. (7.2-11.1); NUCLEATED RBCS 0 /100WBC; PLATELET COUNT* 179 thou/uL (150-400); RBC 3.41 mil/uL (4.50-6.00); WBC 11.8 thou/uL (4.0-11.0)
[2021-07-11 04:04] LABS: ALBUMIN 2.6 g/dL (3.4-5.0); CALCIUM 8.4 mg/dL (8.5-10.1); CREATININE 1.6 mg/dL (0.6-1.3); MAGNESIUM 1.8 mg/dL (1.8-2.4); POTASSIUM 4.1 mmol/L (3.5-5.1); TOTAL BILIRUBIN 0.3 mg/dL (<0.1-1.0); TOTAL PROTEIN 6.2 g/dL (6.4-8.2)
[2021-07-11 06:49] LABS: ABSOLUTE LYMPHOCYTES 1.1 thou/uL (0.8-5.3); ABSOLUTE NEUTROPHILS 10.7 thou/uL (1.6-8.1); PLATELET ESTIMATE ADEQUATE
--- NOTE | 2021-07-11 08:27 | CON ---
[address] [address] CONSULTATION Name: ROBY OWENS JR Room: [address] IN M.R.#: [id number] Admission: 07/08/21 Attend Phys: Darian Gomes MD Discharge: Date of : 45 Report #: [id number] THIS REPORT FOR: cc: Ronal Bradley Gregory DO Pervez, Adeel MD ~ DATE OF CONSULTATION: 07/10/2021 REQUESTING PHYSICIAN: Dr. Esquivel. INDICATION FOR CONSULTATION: Recurrent infiltrates. HISTORY OF PRESENT ILLNESS: This is a 76-year-old gentleman. He only has a history of remote smoking. He discontinued more than 40 years ago and since then has been a nonsmoker. I initially saw this patient back in February. At that time, he did have large bilateral infiltrates and he did not appear to be fluid overloaded. 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 The patient, at that time, also was diagnosed with moderate aortic stenosis. I subsequently saw the patient in my office. I recall consulting an Infectious Disease physician for evaluation for Mycobacterium avium intracellulare. I do not have records from the office available at this time. The patient states that he never went to see the Infectious Disease physician as his insurance did not cover him. The patient is now admitted again yesterday, presentation is with increasing shortness of breath. He has also had a cough. There is not much sputum. There is no chest pain. He does have significant swelling of bilateral lower extremities, which is new since February. He does have some varicose veins as well. He is not describing any upper respiratory complaints. REVIEW OF SYSTEMS: For 12 points is negative, except as mentioned above. PAST MEDICAL HISTORY: Moderate aortic stenosis. Echocardiogram from February shows a left ventricular ejection fraction of 60-65% with a pulmonary artery systolic of 35. There is moderate aortic stenosis, congestive heart failure secondary to diastolic dysfunction and aortic stenosis, Mycobacterium avium intracellulare culture positive from bronchoscopy in February, chronic venous insufficiency, hip and back pain in the past, use of significant amounts of narcotics in the past, now off, spinal stimulator, hernia surgery, knee surgery, hemorrhoid surgery, appendectomy, skull fracture, spinal fusion, nose cancer requiring surgery, rotator cuff surgery, hypertension, which has been uncontrolled in the past. SOCIAL HISTORY: He says he smoked occasionally more than 40 years ago. He has not been smoking for the last 40 years. No known [place] [address] CONSULTATION Name: ROBY OWENS JR Room: [address]#: [id number] Admission: 07/08/21 Attend Phys: Darian Gomes MD Discharge: Date of : 45 Report #: [id number] or illegal drug use. CURRENT MEDICATIONS: List in [employer] reviewed. HOME MEDICATIONS: List also in [employer] reviewed. IMMUNIZATION HISTORY: He has had 2 doses of COVID-19 vaccine. He was sick after using the second dose of Pfizer COVID-19 vaccine. At first glance, it appears more likely to me that this was a coincidence. FAMILY HISTORY: No pertinent family history. ALLERGIES: HE HAS ALLERGY OR INTOLERANCE TO CODEINE. PHYSICAL EXAMINATION: GENERAL: He is alert, awake and oriented. VITAL SIGNS: Has a pulse of 82 and a blood pressure of 139/77. He is saturating 100%. He is on 1 liter oxygen. Respiratory rate is 16. His temperature is 37.2. HEENT: Head is normocephalic and atraumatic. Pupils are equal and reactive. There is no throat erythema. NECK: Does not show raised JVP, asymmetry, mass or lymph nodes. CHEST: Symmetrical expansion on inspection and palpation. On auscultation, he does have a 2-3/6 murmur. ABDOMEN: Soft and nontender. EXTREMITIES: Lower extremities show 2+ edema bilaterally. There is calf tenderness present bilaterally. There are varicose veins noted bilaterally. SKIN: Moist and weepy. NEUROLOGIC: Moves all extremities bilaterally equally and spontaneously with no focal deficit identified. LABORATORY DATA: The patient's CT chest is reviewed. Primarily, it shows fluid overload; however, there is development of new infiltrates in the right lower lobe as well as upper lobe as well. There was a previous infiltrate in February. I suspect that the infiltrate we are seeing now in the right lower lobe is new, but it could also be progression of previously seen infiltrate. The patient's lab work is in [employer] and this is also reviewed. Nasal swab for MRSA is negative. ASSESSMENT AND PLAN: 1. Shortness of breath. Primarily, the patient's symptoms appear to be secondary to fluid overload, but he does have some new infiltrates as well. Also, thromboembolism needs to be ruled out as well. Bronchospasm does not appear to be playing a [place] [address] CONSULTATION Name: ROBY OWENS JR Room: [address] ADM IN M.R.#: [id number] Admission: 07/08/21 Attend Phys: Darian Gomes MD Discharge: Date of : 45 Report #: [id number] 2. Fluid overload/congestive heart failure, secondary to diastolic dysfunction and moderate aortic stenosis/bilateral pleural effusions. Pleural effusions are likely secondary to heart failure. He, however, has developed mild elevation in creatinine today at 1.3 and therefore, it will be difficult to treat this with diuresis alone. Therefore, I will go ahead and recommend a thoracentesis on the right side tomorrow morning. I will consider giving him more IV Lasix, possibly with albumin later. He may require a thoracentesis on the left side later as well. The Cardiology service is already on the case. 3. Pulmonary infiltrates/Mycobacterium avium intracellulare positive culture from bronchoscopy. As above, I had referred him to an Infectious Disease physician as an outpatient, but due to insurance reasons, he never went to see the physician. At this time, I do not have records from my office available. I will review these and then we will advise further. Meanwhile, I recommend that we go ahead and obtain an Infectious Disease consult. The patient currently is on Zosyn and Zyvox. Pending ID review, I continued the same antibiotics; however, I would like to reduce his intake. He is able to take p.o. Therefore, I switched linezolid over to oral. He is also on Cymbalta. I held Cymbalta while he is on linezolid. 4. Edema of lower extremities/chronic venous insufficiency/rule out thromboembolism. I recommend obtaining venous Dopplers. I will order a D-dimer for tomorrow morning. The patient is high risk for IV dye nephrotoxicity. Therefore, I will be cautious in deciding as to whether we should do a CTA chest. In case the D-dimer is elevated, then I would recommend that we proceed with a repeat echo tomorrow morning to reevaluate the right heart pressures. 5. Possibility of bronchospasm. Bronchospasm does not appear to be playing a major role at this time. He does have a remote history of smoking, discontinued more than 40 years ago. Again, we will review records from the office whenever I am able to access them and then we will advise further. Meanwhile, we will cut down on steroids significantly. We will continue nebulized bronchodilators. 6. Deep venous thrombosis prophylaxis. He is on Lovenox. 7. Clostridium difficile prophylaxis. We will order Lactinex. Thanks for this consultation. <ELECTRONICALLY SIGNED> By: Aristides Ornelas MD 07/11/21 0827 1617 1952Asandi Ornelas MD /nt
[2021-07-12] VITALS: BP 148/63
[2021-07-12 04:00] VITALS: BP 153/60
[2021-07-12 04:39] LABS: HEMATOCRIT 27.9 % (42.0-52.0); HEMOGLOBIN 9.5 gm/dL (14.0-18.0); MCV 82.2 fL (80.0-100.0); MPV 9.5 fl. (7.2-11.1); RBC 3.39 mil/uL (4.50-6.00); WBC 9.9 thou/uL (4.0-11.0)
[2021-07-12 05:19] LABS: ALBUMIN 2.6 g/dL (3.4-5.0); CALCIUM 8.5 mg/dL (8.5-10.1); CREATININE 1.4 mg/dL (0.6-1.3); MAGNESIUM 1.9 mg/dL (1.8-2.4); POTASSIUM 3.8 mmol/L (3.5-5.1); TOTAL BILIRUBIN 0.5 mg/dL (<0.1-1.0)
[2021-07-12 09:00] VITALS: BP 173/74
[2021-07-12 12:00] VITALS: BP 149/69
[2021-07-12 17:32] VITALS: BP 178/90
[2021-07-12 20:10] VITALS: BP 134/69
[2021-07-13 00:30] VITALS: BP 122/59
[2021-07-13 04:38] VITALS: BP 134/71
[2021-07-13 09:00] VITALS: BP 177/71
[2021-07-13 12:00] VITALS: BP 155/77
[2021-07-13 17:48] VITALS: BP 140/98
[2021-07-13 20:00] VITALS: BP 114/66
[2021-07-14 00:41] VITALS: BP 160/60
[2021-07-14 04:51] LABS: ABSOLUTE EOSINOPHILS 0.6 thou/uL (0.0-0.7); ABSOLUTE LYMPHOCYTES 2.4 thou/uL (0.8-5.3); ABSOLUTE MONOCYTES 0.6 thou/uL (0.0-1.2); BASOPHILS 0.3 %; HEMATOCRIT 31.3 % (42.0-52.0); HEMOGLOBIN 10.5 gm/dL (14.0-18.0); LYMPHOCYTES 31.6 %; MCHC 33.6 g/dL (28.0-37.0); MCV 83.5 fL (80.0-100.0); MONOCYTES 7.4 %; MPV 9.2 fl. (7.2-11.1); NUCLEATED RBCS 0 /100WBC; PLATELET COUNT* 182 thou/uL (150-400); POLYS 52.7 %; RBC 3.75 mil/uL (4.50-6.00); RDW-CV 14.4 % (10.5-14.5); WBC 7.5 thou/uL (4.0-11.0)
[2021-07-14 05:05] LABS: ALBUMIN 2.4 g/dL (3.4-5.0); CALCIUM 8.3 mg/dL (8.5-10.1); CREATININE 1.5 mg/dL (0.6-1.3); MAGNESIUM 1.8 mg/dL (1.8-2.4); PHOSPHORUS* 3.4 mg/dL (2.5-4.9); TOTAL BILIRUBIN 0.4 mg/dL (<0.1-1.0); TOTAL PROTEIN 5.8 g/dL (6.4-8.2)
[2021-07-14 05:47] VITALS: BP 178/87
[2021-07-14 09:00] VITALS: BP 167/64
[2021-07-14] MEDS ORDERED: LEVOFLOXACIN750 MG PO (11:37)
[2021-07-14 13:48] VITALS: BP 178/87
[2021-07-14] MEDS ORDERED: DIFLUCAN100 MG PO (15:02)
[2021-07-14 20:00] VITALS: BP 178/87
[2021-07-15 02:06] LABS: MYCOPLASMA PNEUMONIA IgG 911 U/mL (0-99); MYCOPLASMA PNEUMONIA IgM <770 U/mL (0-769)
== END 2021-07-14 16:57 | disposition home health service (06) | DRG 177 ==
LOC: M.ERS 19:01 → M.2W 22:52 → M.TBA-ER 22:52 → M.2W 07-09 00:56
PROVIDERS: Internal Medicine; Internal Medicine Critical Care Medicine; Personal Emergency Response Attendant; Physician Assistant; ADMIT Internal Medicine; ATTEND Internal Medicine
DX: J15.6 Pneumonia due to other Gram-negative bacteria (principal); J96.01 Acute respiratory failure with hypoxia; I50.33 Acute on chronic diastolic (congestive) heart failure; A31.0 Pulmonary mycobacterial infection; Z20.822 Contact with and (suspected) exposure to COVID-19; Z96.651 Presence of right artificial knee joint; E87.70 Fluid overload, unspecified; I87.2 Venous insufficiency (chronic) (peripheral); D50.9 Iron deficiency anemia, unspecified; A08.4 Viral intestinal infection, unspecified; I35.0 Nonrheumatic aortic (valve) stenosis; I11.0 Hypertensive heart disease with heart failure; E78.5 Hyperlipidemia, unspecified; Z90.49 Acquired absence of other specified parts of digestive tract; Z88.6 Allergy status to analgesic agent; Z87.891 Personal history of nicotine dependence; Z23 Encounter for immunization

== ENCOUNTER 2021-08-20 13:26 | Inpatient (IN) | payer OTHER ==
[~2021-08-20] VITALS: Ht 177.8 cm; Wt 96.6 kg
[~2021-08-20 13:26] MED LIST changes: +DIFLUCAN100 MG PO; +LEVOFLOXACIN750 MG PO
[2021-08-20 13:32] VITALS: BP 163/94
--- NOTE | 2021-08-20 14:11 | EKG ---
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 : 1945 Requested By: Norberto Song Order Number: [id number] MD: Reji Alvarado Measurements Intervals Muse Rate: 77 P: 55 OH: 221 QRS: 37 QRSD: 92 T: 67 QT: 415 QTc: 470 Interpretive Statements Sinus rhythm Prolonged OH interval Probable left atrial enlargement Abnormal R-wave progression, early transition Baseline wander in lead(s) I,III,aVL Compared to ECG 07/08/2021 18:59:00 no change Electronically Signed On 08-20-2021 14:11:40 [employer] by Reji Alvarado [email or web address] <ELECTRONICALLY SIGNED> By: Reji Alvarado MD, [facility] 08/20/21 1411 1349 1349 Reji Alvarado MD, [facility] /EPI
[2021-08-20 14:17] LABS: ABSOLUTE BASOPHILS 0.1 thou/uL (0.0-0.2); ABSOLUTE EOSINOPHILS 0.2 thou/uL (0.0-0.7); ABSOLUTE LYMPHOCYTES 1.3 thou/uL (0.8-5.3); ABSOLUTE MONOCYTES 0.5 thou/uL (0.0-1.2); ABSOLUTE NEUTROPHILS 5.1 thou/uL (1.6-8.1); BASOPHILS 1.1 %; EOSINOPHILS 2.4 %; HEMATOCRIT 33.6 % (42.0-52.0); HEMOGLOBIN 11.3 gm/dL (14.0-18.0); LYMPHOCYTES 17.9 %; MCH 28.2 pg (26.0-34.0); MCHC 33.5 g/dL (28.0-37.0); MCV 84.1 fL (80.0-100.0); MONOCYTES 6.8 %; MPV 9.6 fl. (7.2-11.1); NUCLEATED RBCS 0 /100WBC; PLATELET COUNT* 157 thou/uL (150-400); POLYS 71.8 %; RBC 3.99 mil/uL (4.50-6.00); RDW-CV 16.9 % (10.5-14.5); WBC 7.1 thou/uL (4.0-11.0)
[2021-08-20 14:23] LABS: CALCIUM 9.1 mg/dL (8.5-10.1); CREATININE 1.1 mg/dL (0.6-1.3); POTASSIUM 4.2 mmol/L (3.5-5.1)
[2021-08-20 14:28] LABS: ALBUMIN 2.9 g/dL (3.4-5.0); TOTAL PROTEIN 6.5 g/dL (6.4-8.2)
[2021-08-20 17:34] VITALS: BP 192/77
[2021-08-20 19:52] VITALS: BP 157/80
[2021-08-20 20:00] VITALS: BP 198/91
[2021-08-21 00:53] VITALS: BP 162/73
[2021-08-21 04:00] VITALS: BP 197/87
[2021-08-21 04:46] LABS: ABSOLUTE BASOPHILS 0.1 thou/uL (0.0-0.2); ABSOLUTE EOSINOPHILS 0.3 thou/uL (0.0-0.7); ABSOLUTE LYMPHOCYTES 1.5 thou/uL (0.8-5.3); ABSOLUTE MONOCYTES 0.7 thou/uL (0.0-1.2); ABSOLUTE NEUTROPHILS 7.1 thou/uL (1.6-8.1); BASOPHILS 0.9 %; EOSINOPHILS 2.7 %; HEMATOCRIT 33.2 % (42.0-52.0); LYMPHOCYTES 15.8 %; MCH 28.4 pg (26.0-34.0); MCHC 33.3 g/dL (28.0-37.0); MCV 85.4 fL (80.0-100.0); MONOCYTES 7.5 %; MPV 9.8 fl. (7.2-11.1); NUCLEATED RBCS 0 /100WBC; PLATELET COUNT* 153 thou/uL (150-400); POLYS 73.1 %; RBC 3.89 mil/uL (4.50-6.00); RDW-CV 17.1 % (10.5-14.5); WBC 9.7 thou/uL (4.0-11.0)
[2021-08-21 04:58] LABS: CALCIUM 8.8 mg/dL (8.5-10.1); POTASSIUM 3.7 mmol/L (3.5-5.1)
[2021-08-21 08:00] VITALS: BP 164/76
--- NOTE | 2021-08-21 10:28 | CON ---
[address] [address] CONSULTATION Name: SHAKIRA ROBY MARQUEZ Room: [address] Jesu Cooper#: [id number] Admission: 08/20/21 Attend Phys: Darian Gomes MD Discharge: Date of : 45 Report #: [id number] THIS REPORT FOR: cc: Ronal Bradley Gregory DO Blick, David R. MD [facility] ~ cc: Ronal Bradley DO DATE OF CONSULTATION: 08/20/2021 CARDIOLOGY CONSULTATION HISTORY OF PRESENT ILLNESS: The patient is a 76-year-old white male who I was asked to see in the Emergency Room today after he complained of chest pain. The patient has had a heart murmur for years. He is not very active at this time and uses a cane. He also cares for his who has been in long-term care because of multiple sclerosis. He previously lived in [place]. He was admitted to [facility] in February of this year with pneumonia. Echocardiogram showed normal left ventricular function with only mild aortic stenosis. He states that since he was released in February, he continues to be short of breath with exertion. He denies any cough. He has had a fever recently, he has noted some lower extremity edema. He also notes an ache in his chest there most of the time. It is not worse with exertion or meals. There is no radiation of the pain. It is not worse with taking deep breath. He denies any leg pain. He has had no syncope. He was brought to the Emergency Room today by ambulance and admitted for further evaluation and treatment. PAST MEDICAL HISTORY: Significant for appendectomy, hemorrhoid surgery, hernia repair, knee surgery, rotator cuff surgery. He had a spinal implant in the past. He has a history of hypertension, hyperlipidemia. CURRENT MEDICATIONS: Include Proventil inhaler, Lipitor, carvedilol, Cymbalta, losartan, omeprazole, Flomax. ALLERGIES: HE HAS PREVIOUS INTOLERANCE TO CODEINE. FAMILY HISTORY: Negative for heart disease. SOCIAL HISTORY: He is . He and his live here in [place]. He quit smoking years ago. No alcohol abuse. REVIEW OF SYSTEMS: No history of stroke. He does have a history of asthma. No kidney disease. He has had skin cancer removed in the past. No chronic skin condition[place] [address] CONSULTATION Name: ROBY OWENS JR Room: [address]#: [id number] Admission: 08/20/21 Attend Phys: Darian Gomes MD Discharge: Date of : 45 Report #: [id number] PHYSICAL EXAMINATION: GENERAL: Revealed an elderly, frail-appearing male, lying in bed, appeared in no distress. VITAL SIGNS: Blood pressure is 160/90, pulse 70, he is afebrile. HEENT: He was anicteric. Conjunctivae pink. Mucosa is moist. NECK: Veins not distended. Radiating systolic murmur was noted in the carotids. CHEST: Revealed decreased breath sounds. HEART: Regular rate and rhythm. Grade 4 systolic ejection murmur at left sternal border. ABDOMEN: Soft. EXTREMITIES: Had no pitting edema. Dorsalis pedis pulse 1+ bilaterally. SKIN: Cool and dry. NEUROLOGIC: Nonfocal. LYMPHATIC: No adenopathy. MUSCULOSKELETAL: Joint effusion. LABORATORY DATA: His ECG showed a sinus rhythm with early transition, but no significant ST or T-wave changes were noted. His workup in the Emergency Room today, he had a chest x-ray that showed bilateral interstitial infiltrates. He actually had a CT scan of the chest using a PE protocol that showed no aortic dissection. Bilateral infiltrates, small effusions. His lab work, creatinine 1.1. His high sensitivity troponin was 125. His white blood cell count 7.1, hematocrit 33.6. His COVID antigen stat test was negative. IMPRESSION AND RECOMMENDATIONS: 1. Pneumonia. 2. Hypertension. The patient is on a beta sy and ARB. He does go to the [facility]. 3. Mild aortic stenosis. 4. Hyperlipidemia. The patient is on a statin drug. 5. Carotid bruits. Recommend Doppler. 6. Anemia. No history of bleeding. <ELECTRONICALLY SIGNED> By: Reji Alvarado MD, FACC 08/21/21 1028 1511 1850Reji Alvarado MD, FACC /nt
[2021-08-21 12:30] VITALS: BP 183/84
[2021-08-21 16:00] VITALS: BP 187/95
[2021-08-21 20:00] VITALS: BP 156/87
[2021-08-22 00:50] VITALS: BP 140/71
[2021-08-22 04:35] VITALS: BP 169/76
--- NOTE | 2021-08-22 04:53 | NUR ---
ASSUMED CARE OF PT AFTER REPORT AT 1930. PT A&OX4. VSS. PHYSICAL ASSESSMENT COMPLETED AND CHARTED. PT ON RA. PT TRACING SR/SB/PVC ON TELE. PT COMPLAINED OF HEADACHE-MED GIVEN PER DEC. PT JENIFER TO SLEEP WELL ON BED. FALL PRECAUTIONS IN PLACE. CALL LIGHT WITHIN REACH.
[2021-08-22 04:55] LABS: CALCIUM 8.6 mg/dL (8.5-10.1); CREATININE 1.2 mg/dL (0.6-1.3); MAGNESIUM 1.9 mg/dL (1.8-2.4); POTASSIUM 3.9 mmol/L (3.5-5.1)
--- NOTE | 2021-08-22 04:56 | NUR ---
ASSUMED CARE OF PT AFTER REPORT AT 1930. PT A&OX4. VSS. PHYSICAL ASSESSMENT COMPLETED AND CHARTED. PT ON O2 AT 2L NC. PT TRACING SR/SB/PVC ON TELE. PT COMPLAINED OF HEADACHE-MED GIVEN PER DEC. PT JENIFER TO SLEEP WELL ON BED. FALL PRECAUTIONS IN PLACE. CALL LIGHT WITHIN REACH.
[2021-08-22 08:00] VITALS: BP 176/80
--- NOTE | 2021-08-22 09:40 | NUR ---
The patient is alert and orienated x4. Denies pain. SR on the monitor. LS diminished. BS +4. Transfers with one assist to the BR.
[2021-08-22 12:12] VITALS: BP 189/64
--- NOTE | 2021-08-22 13:25 | CON ---
[address] [address] CONSULTATION Name: ROBY OWENS JR Room: [address] IN M.R.#: [id number] Admission: 08/21/21 Attend Phys: Darian Goems MD Discharge: Date of : 45 Report #: [id number] THIS REPORT FOR: cc: Ronal Bradley Gregory DO Pervez, Adeel MD ~ DATE OF CONSULTATION: 08/21/2021 CONSULT HAS BEEN REQUESTED BY: Darian Gomes MD INDICATION FOR CONSULTATION: Respiratory failure. HISTORY OF PRESENT ILLNESS: A 76-year-old gentleman, past medical history includes only a remote history of smoking. He smoked about 1-1/2 packs a day for about 10 years, but discontinued in 1969 and has been a nonsmoker since then. He has a history of congestive heart failure secondary to moderate aortic stenosis. Further, I performed a bronchoscopy to evaluate the infiltrates earlier this year and it did grow Mycobacterium avium intracellulare. His spirometry shows a mild obstructive defect consistent with mild bronchial asthma. I had referred him for an outpatient Infectious Disease consultation for evaluation of the positive culture for Mycobacterium avium intracellulare as it was not fully apparent as to whether this was a colonizer or infection. The patient unfortunately due to insurance reasons did not go to the Infectious Disease physician. He was again admitted to this hospital recently. At that time, we did obtain an inpatient Infectious Disease consultation with Dr. Yoo. The patient was treated with Zosyn and then with Levaquin. Briefly, he also received linezolid and the consensus at that time was again to have him established with Infectious Disease physician as an outpatient to evaluate as to whether he should receive long-term therapy for Mycobacterium avium intracellulare. Meanwhile, he has also had another sleep study, which is also performed at an outside institution and showed an apnea-hypopnea index of 24. The patient now is once again admitted with increasing shortness of breath. He is reported to have also had chest pain initially, which has now subsided. He has had a cough. There is only small amount of clear sputum. He does have swelling of lower extremities. He has had some coughing, which is longstanding. He did not describe upper respiratory complaints. He has had disturbed sleep at night. He has had sleepiness during the day. These complaints are significant, but not changed compared with his baseline. He has some joint pains, [place] [address] CONSULTATION Name: ROBY OWENS JR Room: [address]#: [id number] Admission: 08/21/21 Attend Phys: Darian Gomes MD Discharge: Date of : 45 Report #: [id number] REVIEW OF SYSTEMS: For 12 points is negative except as mentioned above. PAST MEDICAL HISTORY: Positive culture from bronchoscopy for Mycobacterium avium intracellulare see discussion as above. Congestive heart failure secondary to moderate aortic stenosis. Last echo shows a left ventricular ejection fraction of 60-65% with a pulmonary artery systolic of 35-40. Spirometry from earlier this year shows a mild restrictive pattern, but the FEV1/FVC ratio is also decreased and this is consistent with mild to moderate obstruction, consistent with bronchial asthma, varicose veins, chronic venous insufficiency, hernia repair, hemorrhoidectomy, foot fractures, sinus surgery, spinal implant, knee surgery, skull fracture, C-spine fusion, rotator cuff surgery, hypertension. SOCIAL HISTORY: Smoker before 1969 one and half packs for 10 years, discontinued in 1969, has not smoked since then. No known history of heavy alcohol use or illegal drug use. CURRENT MEDICATIONS: List in [employer] - is now [employer] reviewed. HOME MEDICATIONS: List in [employer] - is now [employer] reviewed. ALLERGIES: CODEINE. FAMILY HISTORY: No pertinent family history. IMMUNIZATION HISTORY: The patient has received 2 doses of Pfizer COVID-19 vaccine. The patient says that his respiratory complaints are the result of Pfizer COVID-19 vaccine; however, I do not believe that this is the case. PHYSICAL EXAMINATION: GENERAL: He is alert, awake and oriented. VITAL SIGNS: Has a pulse of 68 and a blood pressure of 187/95. He is on 2 liters nasal cannula, saturating 94%. His respiratory rate is 17. He is afebrile with a temperature of 36.9. HEENT: Head is normocephalic and atraumatic. Pupils are equal and reactive. There is no throat erythema. NECK: Does not show raised JVP, asymmetry, mass or lymph nodes. CHEST: Symmetrical expansion on inspection and palpation. On auscultation, breath sounds are bilaterally equal, decreased at bases. No added sounds. HEART: Regular. There is a systolic murmur. ABDOMEN: Soft and nontender. EXTREMITIES: Lower extremities do show 2+ edema bilaterally. There was some calf tenderness, which has not changed compared with his baseline. SKIN: [place] [address] CONSULTATION Name: ROBY OWENS JR Room: [address] IN M.R.#: [id number] Admission: 08/21/21 Attend Phys: Darian oGmes MD Discharge: Date of : 45 Report #: [id number] NEUROLOGIC: Moves all extremities bilaterally equally and spontaneously with no focal deficit identified. LABORATORY DATA: The patient had a CTA chest performed last night. In summary, this shows changes consistent with congestive heart failure. There is some basilar infiltrates as well. The patient's lab work is in [employer] - is now [employer] and this is reviewed. ASSESSMENT/PLAN: 1. Acute respiratory failure. The primary etiology of the patient's acute respiratory failure, appears to be congestive heart failure secondary to aortic stenosis. 2. Congestive heart failure secondary to aortic stenosis/elevated blood pressure. He is on diuresis, I agree with the same, recommend continuing with diuresis, this is being managed by the Cardiology Service. I did add a magnesium level to the morning labs and it is low and therefore, I replaced magnesium. 3. Pulmonary infiltrates with history of positive culture from bronchoscopy for Mycobacterium avium intracellulare infection versus colonization. As above findings on the CT chest are primarily related to fluid overload. He has received antibiotics recently, therefore, considering his history of Mycobacterium avium intracellulare, I did order azithromycin for now, but I held off on broader antibiotic coverage. We will follow along and once he is well diuresed will plan on obtaining a repeat CT chest without contrast and see if the infiltrates seen initially significantly improved or resolved. If this is not the case, then as above the patient may benefit from this being established with an Infectious Disease physician as an outpatient, but considering that there may be insurance that he has to this. I will discuss with him as to whether he wants to go ahead and start with long-term therapy with azithromycin with ethambutol with or without rifampin prior to his discharge. Note that if we do start him on ethambutol then he will need regular eye examinations and if he does get started on rifampin then he would need his LFTs regularly monitored. 4. Obstructive sleep apnea, apnea-hypopnea index is elevated above 24. He is at high risk of developing complex sleep apnea/treatment emergent central sleep apnea upon administration of CPAP therapy. Therefore, I recommend proceeding to an in-lab sleep study prior to initiation of long-term CPAP or BiPAP therapy at home. We already ordered a sleep study, which is pending due to insurance reasons will need to be done at an outside institution. Will assess his oxygen needs prior to his discharge. 5. Bronchial asthma. Considering Mycobacterium avium intracellulare being conservative therapy and I have not yet started inhaled steroid. Certainly, we will consider steroids if he is not bronchospastic. Meanwhile, we will continue with bronchodilators and we will resume his Singulair. 6. Elevated D-dimer/chronic venous insufficiency. CTA chest did not show [address] [place] [address] CONSULTATION Name: ROBY OWENS JR Room: [address] IN [facility]#: [id number] Admission: 08/21/21 Attend Phys: Darian Gomes MD Discharge: Date of : 45 Report #: [id number] pulmonary emboli and had a Venous Dopplers performed as well, which does not show evidence of DVT. The patient is on prophylactic dose Lovenox. 7. Connective tissue markers noted that we obtain even a previous admission. MACRINA and ANCA as well as rheumatoid arthritis factor were all negative and urine for histoplasma antigen was also negative. During the last hospitalization due to diarrhea, clostridium difficile was also checked and was found to be negative. Thanks for this consultation. <ELECTRONICALLY SIGNED> By: Aristides Ornelas MD 08/22/21 [phone] [id number] Ornelas MD /nt
[2021-08-22 14:30] LABS: APTT 27.9 Seconds (25.0-31.3); INR 1.2; PROTIME 12.1 Seconds (9.20-11.50)
[2021-08-22 17:45] VITALS: BP 143/75
--- NOTE | 2021-08-22 18:14 | NUR ---
CM ASSESSMENT ASSESSMENT COMPLETED WITH PT. PT LIVES WITH IN A SINGLE STORY HOME. PT WILL NEED TRANSPORTATION ASSISTANCE UPON DC. PT INDEPENDENT WITH ADLS. PT USES A CANE. PT HAS NO HISTORY OF HH OR SKILLED. PT HAS A HISTORY OF REHAB SERVICES BUT UNABLE TO REPORT LOCATION OR TIMEFRAME. PT TO BE DC HOME WITH HH UPON DC.
--- NOTE | 2021-08-22 18:17 | NUR ---
CM FOLLOWUP PT NOT MEDICALLY CLEAR. PT MAY DC HOME WITH ON 08/25/21. PT REFERRED TO [facility] [phone].
[2021-08-22 20:00] VITALS: BP 156/85
[2021-08-23] VITALS: BP 142/76
[2021-08-23 04:00] VITALS: BP 139/75
[2021-08-23 04:16] LABS: ABSOLUTE BASOPHILS 0.1 thou/uL (0.0-0.2); ABSOLUTE EOSINOPHILS 0.5 thou/uL (0.0-0.7); ABSOLUTE LYMPHOCYTES 1.9 thou/uL (0.8-5.3); ABSOLUTE MONOCYTES 0.8 thou/uL (0.0-1.2); BASOPHILS 1.3 %; EOSINOPHILS 6.7 %; HEMATOCRIT 35.1 % (42.0-52.0); HEMOGLOBIN 11.7 gm/dL (14.0-18.0); LYMPHOCYTES 25.7 %; MCHC 33.3 g/dL (28.0-37.0); MCV 84.2 fL (80.0-100.0); MONOCYTES 11.3 %; MPV 9.8 fl. (7.2-11.1); NUCLEATED RBCS 0 /100WBC; PLATELET COUNT* 150 thou/uL (150-400); RBC 4.17 mil/uL (4.50-6.00); RDW-CV 17.3 % (10.5-14.5); WBC 7.3 thou/uL (4.0-11.0)
[2021-08-23 04:31] LABS: CALCIUM 8.9 mg/dL (8.5-10.1); CREATININE 1.2 mg/dL (0.6-1.3); MAGNESIUM 1.7 mg/dL (1.8-2.4); POTASSIUM 3.7 mmol/L (3.5-5.1); TOTAL BILIRUBIN 0.7 mg/dL (<0.1-1.0); TOTAL PROTEIN 6.8 g/dL (6.4-8.2)
--- NOTE | 2021-08-23 05:33 | NUR ---
ASSUMED CARE OF PT AFTER REPORT AT 1930. PT A&OX4. VSS.PHYSICAL ASSESSMENT COMPLETED AND CHARTED. PT ON O2 AT 1LNC. PT TRACING SR/SB ON TELE. PT UPSTANDY TO RESTROOM. FALL PRECAUTIONS IN PLACE. CALL LIGHT WITHIN REACH.
[2021-08-23 08:00] VITALS: BP 121/76
[2021-08-23 12:33] VITALS: BP 171/84
[2021-08-23 16:21] VITALS: BP 140/70
[2021-08-23 20:00] VITALS: BP 143/79
[2021-08-24 00:48] VITALS: BP 166/79
[2021-08-24 02:29] LABS: ABSOLUTE BASOPHILS 0.1 thou/uL (0.0-0.2); ABSOLUTE EOSINOPHILS 0.6 thou/uL (0.0-0.7); ABSOLUTE MONOCYTES 0.9 thou/uL (0.0-1.2); BASOPHILS 1.1 %; EOSINOPHILS 7.5 %; HEMOGLOBIN 11.7 gm/dL (14.0-18.0); MCH 28.2 pg (26.0-34.0); MCHC 33.5 g/dL (28.0-37.0); MCV 84.1 fL (80.0-100.0); MONOCYTES 10.8 %; MPV 9.4 fl. (7.2-11.1); NUCLEATED RBCS 0 /100WBC; PLATELET COUNT* 155 thou/uL (150-400); POLYS 57.6 %; RBC 4.16 mil/uL (4.50-6.00); WBC 8.6 thou/uL (4.0-11.0)
[2021-08-24 02:42] LABS: CALCIUM 8.6 mg/dL (8.5-10.1); CREATININE 1.1 mg/dL (0.6-1.3); MAGNESIUM 1.8 mg/dL (1.8-2.4); POTASSIUM 3.9 mmol/L (3.5-5.1)
--- NOTE | 2021-08-24 03:53 | NUR ---
ASSUMED CARE OF PT AFTE REPORT AT 1930. PT A&OX4. VSS. PHYSICAL ASSESSMENT COMPLETED AND CHARTED. PT ON RA. PT TRACING SR/SB/1ST DEG ON TELE. PT DENIES ANY PAIN. PT IV LINE INFILTRATED-REFUSED IV INSERTION AT THIS TIME-PROVIDER MADE AWARE. FALL PRECAUTIONS IN PLACE. CALL LIGHT WITHIN REACH.
[2021-08-24 04:00] VITALS: BP 149/85
[2021-08-24 08:00] VITALS: BP 190/90
[2021-08-24 12:00] VITALS: BP 175/95
[2021-08-24] MEDS ORDERED: SINGULAIR 10 MG10 M1 PO (12:45)
[2021-08-24] MEDS ORDERED: LOPRESSOR50 PO (12:45)
[2021-08-24] MEDS ORDERED: LASIX 40 MG TAB40 M2 PO (12:45)
[2021-08-24 13:01] VITALS: BP 175/95
--- NOTE | 2021-08-24 14:04 | NUR ---
The patient is alert. Given two hard scripts. The patient packed his belonigngs. Discharge insructions given. No questions voiced. Monitor removed.
--- NOTE | 2021-08-24 15:13 | NUR ---
The patient was wheeled to the cab. The patient was alert.
== END 2021-08-24 15:14 | disposition home health service (06) | DRG 177 ==
LOC: M.ERS 13:26 → M.TBA-ER 16:51 → M.ORTHSURG 16:51
PROVIDERS: Internal Medicine Cardiovascular Disease; Internal Medicine Critical Care Medicine; Physician Assistant; ADMIT Internal Medicine; ATTEND Internal Medicine
DX: J15.8 Pneumonia due to other specified bacteria (principal); I50.33 Acute on chronic diastolic (congestive) heart failure; J96.00 Acute respiratory failure, unspecified whether with hypoxia or hypercapnia; A31.0 Pulmonary mycobacterial infection; Z96.651 Presence of right artificial knee joint; E78.5 Hyperlipidemia, unspecified; I35.0 Nonrheumatic aortic (valve) stenosis; D64.9 Anemia, unspecified; I27.20 Pulmonary hypertension, unspecified; G47.33 Obstructive sleep apnea (adult) (pediatric); J45.909 Unspecified asthma, uncomplicated; I87.2 Venous insufficiency (chronic) (peripheral); I11.0 Hypertensive heart disease with heart failure; I65.29 Occlusion and stenosis of unspecified carotid artery; Z20.822 Contact with and (suspected) exposure to COVID-19; Z90.49 Acquired absence of other specified parts of digestive tract; Z88.6 Allergy status to analgesic agent; Z87.891 Personal history of nicotine dependence; Z79.82 Long term (current) use of aspirin; Z79.899 Other long term (current) drug therapy

== ENCOUNTER → 2021-11-10 | Outpatient (CLI) | payer OTHER ==
[~2021-11-10] MED LIST changes: +LASIX 40 MG TAB40 M2 PO; +LOPRESSOR50 PO; +SINGULAIR 10 MG10 M1 PO
[2021-11-10 15:25] LABS: ABSOLUTE BASOPHILS 0.1 thou/uL (0.0-0.2); ABSOLUTE LYMPHOCYTES 1.1 thou/uL (0.8-5.3); ABSOLUTE MONOCYTES 0.1 thou/uL (0.0-1.2); ABSOLUTE NEUTROPHILS 6.8 thou/uL (1.6-8.1); BASOPHILS 0.7 %; EOSINOPHILS 0.2 %; HEMATOCRIT 36.5 % (42.0-52.0); LYMPHOCYTES 13.9 %; MCH 28.5 pg (26.0-34.0); MCV 86.4 fL (80.0-100.0); MONOCYTES 1.3 %; MPV 9.2 fl. (7.2-11.1); NUCLEATED RBCS 0 /100WBC; PLATELET COUNT* 165 thou/uL (150-400); POLYS 83.9 %; RBC 4.23 mil/uL (4.50-6.00); RDW-CV 15.5 % (10.5-14.5); WBC 8.1 thou/uL (4.0-11.0)
[2021-11-10 16:00] LABS: ALBUMIN 4.1 g/dL (3.4-5.0); CALCIUM 9.6 mg/dL (8.5-10.1); CREATININE 1.4 mg/dL (0.6-1.3); MAGNESIUM 1.9 mg/dL (1.8-2.4); POTASSIUM 4.8 mmol/L (3.5-5.1); TOTAL BILIRUBIN 0.9 mg/dL (<0.1-1.0); TOTAL PROTEIN 7.5 g/dL (6.4-8.2)
== END ==
LOC: M.LAB 14:48
PROVIDERS: ATTEND Internal Medicine Critical Care Medicine
DX: A31.0 Pulmonary mycobacterial infection (principal); R06.02 Shortness of breath